=== PATIENT | male | born 1990 | race Hispanic/Latino ===

== ENCOUNTER 2017-06-08 11:29 | Outpatient (CLI) | payer BC ==
--- NOTE | 2017-06-08 13:12 | ULT ---
EXAM: TESTICULAR ULTRASOUND: HISTORY: Left inguinal hernia. Right orchectomy. COMPARISON: None. TECHNIQUE: Salas scale, color flow, and color Doppler imaging with spectral waveform analysis performed of the l eft testicle. FINDINGS: The left testicle has a homogeneous echotexture. No masses. The left testicle measures 4.7 x 2.4 x 3.1 cm. The left epididymis has a normal echotexture measuring 0.7 x 1.0 cm. A trace amount of fl uid in the left hemiscrotum. There are tubular structures with vascular flow in the left inguinal canal compatible with prominent vessels. IMPRESSION: 1. Unremarkable echotexture and ultrasound in terms of left testicle and left epididymis. 2. No evidence of inguinal hernia. POS: YESICA
== END 2017-06-08 11:30 | disposition home or self-care (01) ==
LOC: SCSULT 11:29
PROVIDERS: ATTEND Surgery
DX: K40.90 Unilateral inguinal hernia, without obstruction or gangrene, not specified as recurrent (principal); N45.1 Epididymitis
CPT/HCPCS: 76870; 93976